=== PATIENT | female | born 2000 ===

== ENCOUNTER 2022-06-20 12:02 | Emergency (ER) | payer SELFPAY ==
[2022-06-20 12:20] VITALS: BP 117/63
--- NOTE | 2022-06-20 15:06 | Emergency Department Report ---
ED Back Pain/Injury HPI - General Chief Complaint: Back Pain/Injury Stated Complaint: BACK PAIN Source: patient Limitations: Language Barrier - History of Present Illness Initial Comments: 21-year-old female complain of chronic back pain. Patient states that she has to do a lot of lifting and cleaning at her job often caused her back pain. Denies any dysuria numbness or tingling. Denies any IV fever chills or steroid use. Patient was eating during examination. Present time patient states pain is a 0 out of 10. Patient denies the pain radiates. Patient is alert and oriented x3. No acute distress noted no ill appearance noted. MD Complaint: back pain Similar Symptoms Previously: Yes Radiation: none Quality: aching Consistency: intermittent Improves With: none Worsens With: none - Related Data Previous Rx's Medication Instructions Recorded Last Taken Type Ketorolac [Toradol] 10 mg PO Q6H PRN 5 Days #20 tab 06/20/22 Unknown Rx ED Review of Systems ROS: Stated complaint: BACK PAIN Other details as noted in HPI Constitutional: denies: chills, fever Eyes: denies: eye pain, eye discharge, vision change ENT: denies: ear pain, throat pain Respiratory: denies: cough, shortness of breath, wheezing Cardiovascular: denies: chest pain, palpitations Endocrine: no symptoms reported Gastrointestinal: denies: abdominal pain, nausea, diarrhea Genitourinary: denies: urgency, dysuria, discharge Musculoskeletal: back pain. denies: joint swelling, arthralgia Skin: denies: rash, lesions Neurological: denies: headache, weakness, paresthesias Psychiatric: denies: anxiety, depression Hematological/Lymphatic: denies: easy bleeding, easy bruising ED Past Medical Hx - Medications Home Medications: Home Medications Medication Instructions Recorded Confirmed Last Taken Type Ketorolac [Toradol] 10 mg PO Q6H PRN 5 Days #20 tab 06/20/22 Unknown Rx ED Physical Exam - General Limitations: Language Barrier General appearance: alert, in no apparent distress - Head Head exam: Present: atraumatic, normocephalic - Eye Eye exam: Present: normal appearance - ENT ENT exam: Present: mucous membranes moist - Neck Neck exam: Present: normal inspection - Respiratory Respiratory exam: Present: normal lung sounds bilaterally. Absent: respiratory distress - Cardiovascular Cardiovascular Exam: Present: regular rate, normal rhythm. Absent: systolic murmur, diastolic murmur, rubs, gallop - GI/Abdominal GI/Abdominal exam: Present: soft, normal bowel sounds - Extremities Exam Extremities exam: Present: normal inspection - Back Exam Back exam: Present: normal inspection - Neurological Exam Neurological exam: Present: alert, oriented X3 - Psychiatric Psychiatric exam: Present: normal affect, normal mood - Skin Skin exam: Present: warm, dry, intact, normal color. Absent: rash ED Course Vital Signs 06/20/22 12:17 Temperature 98.7 F Pulse Rate 73 Respiratory 18 Rate Blood Pressure 117/63 [Right] O2 Sat by Pulse 100 Oximetry ED Medical Decision Making - Medical Decision Making 21-year-old female complain of chronic back pain. Patient states that she has to do a lot of lifting and cleaning at her job often caused her back pain. Denies any dysuria numbness or tingling. Denies any IV fever chills or steroid use. Patient was eating during examination. Present time patient states pain is a 0 out of 10. Patient denies the pain radiates. Patient is alert and oriented x3. No acute distress noted no ill appearance noted. Physical examination is unremarkable. Rechecked the patient is resting quietly , comfortable and feeling better. I discussed the results of diagnostic study, my clinical impression and the plan for further treatment with the patient. Patient agrees with plan and discharge at this present time. All question addressed. I have given the patient instruction regarding a diagnosis ,expectation ,follow-up and return precaution. I explained to the patient that emergent condition may arise and to return to the ED for new worsen and any new persisting condition. I have explained the importance of following up with the primary care physician or referral physician listed below has instructed. The patient verbalized understanding of discharge instruction. Critical care attestation.: If time is entered above; I have spent that time in minutes in the direct care of this critically ill patient, excluding procedure time. ED Disposition Clinical Impression: Chronic back pain Qualifiers: Back pain location: low back pain Back pain laterality: bilateral Sciatica presence: without sciatica Qualified Code(s): M54.50 - Low back pain, unspecified; G89.29 - Other chronic pain Disposition: 01 HOME / SELF CARE / HOMELESS Is pt being admited?: No Does the pt Need Aspirin: No Condition: Stable Instructions: Chronic Back Pain, [id number] Additional Instructions: Take medication as prescribed Return to ED for any worsening symptom Prescriptions: Ketorolac [Toradol] 10 mg PO Q6H PRN 5 Days #20 tab PRN Reason: Pain Referrals: [facility] [Provider Group] - 3-5 Days Forms: Work/School Release Form(ED) Time of Disposition: 15:14
== END 2022-06-20 15:00 | disposition home or self-care (01) ==
LOC: ED 12:02
DX: G89.29 Other chronic pain (principal); M54.50 Low back pain, unspecified; Z79.899 Other long term (current) drug therapy; X50.1XXA Overexertion from prolonged static or awkward postures, initial encounter; Y93.89 Activity, other specified; Y92.89 Other specified places as the place of occurrence of the external cause; Y99.8 Other external cause status
CPT/HCPCS: 99282